=== PATIENT | female | born 1995 | race Caucasian/White ===

== ENCOUNTER 2020-07-03 13:58 | Emergency (ER) | payer OTHER ==
[~2020-07-03] VITALS: Ht 149.9 cm; Wt 70.8 kg
[2020-07-03 14:12] VITALS: Ht 149.9 cm; Wt 70.8 kg
[2020-07-03 14:51] LABS: BASOPHIL % 0.4 % (0-2); PLATELET COUNT 283 x10^3mcL (130-400)
[2020-07-03 14:53] LABS: RED CELL DISTRIBUTION WIDTH 15.4 % (11.5-14.5)
[2020-07-03 15:53] LABS: microscopic required? YES; urine erythrocyte 2+ (NEGATIVE)
[2020-07-03 18:22] VITALS: BP 96/61
== END 2020-07-03 18:22 | disposition home or self-care (01) ==
LOC: ED 13:58
PROVIDERS: Emergency Medicine
DX: O20.9 Hemorrhage in early pregnancy, unspecified (principal); N76.0 Acute vaginitis; Z3A.01 Less than 8 weeks gestation of pregnancy; Z98.890 Other specified postprocedural states
CPT/HCPCS: 87491; 87591; J2405; J7030; Q0092

== ENCOUNTER 2020-07-04 01:02 | Emergency (ER) | payer OTHER ==
[~2020-07-04] VITALS: Ht 149.9 cm; Wt 71.2 kg
[2020-07-04 01:05] VITALS: BP 115/65; Ht 149.9 cm; Wt 71.2 kg
[2020-07-04 01:47] LABS: BASOPHIL % 0.4 % (0-2); PLATELET COUNT 269 x10^3mcL (130-400)
[2020-07-04 01:48] LABS: RED CELL DISTRIBUTION WIDTH 15.4 % (11.5-14.5)
[2020-07-04 02:34] LABS: UA SPECIFIC GRAVITY 1.015 (1.005-1.035); microscopic required? YES; urine erythrocyte 3+ (NEGATIVE)
== END 2020-07-04 03:21 | disposition home or self-care (01) ==
LOC: ED 01:02
PROVIDERS: Emergency Medicine
DX: O26.851 Spotting complicating pregnancy, first trimester (principal); Z3A.01 Less than 8 weeks gestation of pregnancy
CPT/HCPCS: J1885

== ENCOUNTER 2020-07-04 09:59 | Emergency (ER) | payer OTHER ==
[~2020-07-04] VITALS: Ht 124.5 cm; Wt 69.9 kg
[2020-07-04 10:08] VITALS: Ht 124.5 cm; Wt 69.9 kg
[2020-07-04 10:54] LABS: BASOPHIL % 0.3 % (0-2); PLATELET COUNT 266 x10^3mcL (130-400)
[2020-07-04 11:01] LABS: RED CELL DISTRIBUTION WIDTH 15.2 % (11.5-14.5)
[2020-07-04 12:26] VITALS: BP 117/68
== END 2020-07-04 12:26 | disposition home or self-care (01) ==
LOC: ED 09:59
PROVIDERS: Emergency Medicine
DX: O03.9 Complete or unspecified spontaneous abortion without complication (principal); Z3A.01 Less than 8 weeks gestation of pregnancy
CPT/HCPCS: Q0092

== ENCOUNTER 2020-11-29 23:27 | Emergency (ER) | payer OTHER ==
[~2020-11-29] VITALS: Ht 149.9 cm; Wt 72.1 kg
[2020-11-29 23:32] VITALS: Ht 149.9 cm; Wt 72.1 kg
[2020-11-30 02:16] LABS: BASOPHIL % 0.4 % (0.2-1.3); PLATELET COUNT 259 x10^3mcL (179-408); RED CELL DISTRIBUTION WIDTH 14.1 % (12.3-17.7)
[2020-11-30 02:21] LABS: CALCIUM 8.4 mg/dL (8.5-10.1); CARBON DIOXIDE 27.1 mmol/L (21-32); CHLORIDE SERUM 105 mmol/L (98-107); CREATININE SERUM 0.7 mg/dL (0.6-1.0); GFR1 > 60 mL/min; GLUCOSE SERUM 97 mg/dL (74-106); POTASSIUM SERUM 3.8 mmol/L (3.5-5.1); SODIUM SERUM 140 mmol/L (136-145); rbc morphology (normal/abnorm) NORMAL (NORMAL)
[2020-11-30 02:33] LABS: ALBUMIN 3.8 g/dL (3.4-5.0); ALKALINE PHOSPHATASE 89 U/L (46-116); ALT/SGPT 43 U/L (14-59); AST/SGOT 15 U/L (15-37); BILIRUBIN TOTAL 0.18 mg/dL (0.20-1.00); FREE T4 1.54 ng/dL (0.76-1.46)
[2020-11-30] MEDS ORDERED: CYCLOBENZAPRINE5 MG PO (03:03)
[2020-11-30 03:18] VITALS: BP 113/57
== END 2020-11-30 03:18 | disposition home or self-care (01) ==
LOC: ED 23:27
PROVIDERS: Emergency Medicine
DX: I73.00 Raynaud's syndrome without gangrene (principal)
CPT/HCPCS: 84439